=== PATIENT | female | born 1960 | race Asian ===

== ENCOUNTER 2018-11-28 05:55 | Day surgery (SDC) | payer BC ==
[~2018-11-28] VITALS: Ht 154.9 cm; Wt 68.0 kg
[2018-11-28] MEDS ORDERED: MUPIROCIN 2% TOPICAL OINTMENT 22 GM TP ONE (07:40)
[2018-11-28] MEDS ORDERED: MIDAZOLAM HCL 5 MG/5 ML VIAL IVP ONE (07:40)
[2018-11-28] MEDS ORDERED: ONDANSETRON HCL 4 MG/2 ML VIAL IVP ONE (07:40)
[2018-11-28] MEDS ORDERED: fentaNYL CITRATE/PF 100 MCG/2 ML AMP IVP ONE (07:40)
[2018-11-28] MEDS ORDERED: LIDOCAINE/EPI 1% 1:100000 20 ML VIAL INJ ONE (07:40)
[2018-11-28] MEDS ORDERED: NS IRRIG SOLN 1000 ML IR ONE (07:40)
[2018-11-28] MEDS ORDERED: GLYCOPYRROLATE 0.2 MG/ML VIAL IJ ONE (07:40)
[2018-11-28] MEDS ORDERED: SEVOFLURANE 15 MIN GAS INH ONE (07:40)
[2018-11-28] MEDS ORDERED: LR 1,000 ML IV.SOLN IV ONE (07:40)
[2018-11-28] MEDS ORDERED: PROPOFOL 200MG/ 20ML VIAL (DIPRIVAN) IV ONE (07:40)
[2018-11-28] MEDS ORDERED: NEOSTIGMINE METHYLSULFATE 1 MG/ML, 10 ML VIAL IVP ONE (07:40)
[2018-11-28] MEDS ORDERED: ROCURONIUM BROMIDE 10 MG/ML (ZEMURON) IV ONE (07:40)
[2018-11-28] MEDS ORDERED: DEXAMETHASONE SOD PHOSPHATE 4 MG/ML VIAL IVP ONE (07:40)
[2018-11-28] MEDS ORDERED: fentaNYL CITRATE/PF 100 MCG/2 ML AMP IVP PRN (08:45)
[2018-11-28] MEDS ORDERED: ONDANSETRON HCL 4 MG/2 ML VIAL IVP PRN ×2 (08:45→11:30)
[2018-11-28] MEDS: fentaNYL CITRATE/PF 100 MCG/2 ML AMP IVP PRN ×2 (11:07→11:30)
[2018-11-28] MEDS ORDERED: fentaNYL CITRATE/PF 100 MCG/2 ML AMP ONE (11:15)
[2018-11-28] MEDS ORDERED: HYDROcodone/ACETAMIN 5-325 MG TAB (NORCO/ VICODIN) PO PRN (11:30)
[2018-11-28] MEDS ORDERED: ONDANSETRON 4 MG ODT TAB PO PRN (11:30)
[2018-11-28 12:59] VITALS: BP_SYST 119
== END 2018-11-28 15:40 | disposition home or self-care (01) ==
LOC: SMU 05:55 → SDS 05:55
PROVIDERS: ATTEND Otolaryngology
DX: E04.2 Nontoxic multinodular goiter (principal); Z98.890 Other specified postprocedural states; Z79.899 Other long term (current) drug therapy; Z88.0 Allergy status to penicillin
CPT/HCPCS: 60220; 71046; 87081; 88307; 93005; J1100; J2250; J2405; J2704; J2710; J3010; J3490; J7120